=== PATIENT | male | born 1985 | race Caucasian/White ===

== ENCOUNTER 2017-09-27 15:09 | Inpatient (IN) | payer OTHER ==
[~2017-09-27] VITALS: Ht 172.7 cm; Wt 74.2 kg
[2017-09-27] MEDS ORDERED: LORAZEPAM 2 MG/1 ML VIAL IM ONE (15:15)
[2017-09-27] MEDS ORDERED: HALOPERIDOL LACTATE 5 MG/1 ML VIAL IM ONE (15:15)
[2017-09-27] MEDS ORDERED: IV NORMAL SALINE 1000 ML BAG IV ONE ×2 (15:30→16:45)
[2017-09-27] MEDS ORDERED: HALOPERIDOL LACTATE 5 MG/1 ML VIAL ONE (15:34)
[2017-09-27] MEDS ORDERED: LORAZEPAM 2 MG/1 ML VIAL ONE (15:35)
--- NOTE | 2017-09-27 15:39 | NUR ---
1515 Received ALOX4 with pt in handcuffs with police officers at bedside at this time. Attempt to give injections with pt jumping 3times pulling needle out able to give injection on 4 try. Handcuffs being removed and pt placed in velcro restraints at this time.
[2017-09-27 16:13] LABS: BASOPHILS # (AUTO) 0.1 K/uL (0.0-8.0); BASOPHILS % (AUTO) 0.4 % (0.0-2.0); HEMATOCRIT 35.4 % (36.7-47.1); HEMOGLOBIN 11.7 g/dL (12.5-16.3); LYMPHOCYTES # (AUTO) 1.2 K/uL (20.0-40.0); LYMPHOCYTES % (AUTO) 5.3 % (20.5-51.5); MEAN CORPUSCULAR HEMOGLOBIN 26.8 uug (23.8-33.4); MEAN CORPUSCULAR HGB CONC 33 g/dL (32.5-36.3); MEAN CORPUSCULAR VOLUME 81.2 fL (73.0-96.2); MONOCYTES # (AUTO) 1.8 K/uL (2.0-10.0); MONOCYTES % (AUTO) 8.4 % (0.0-11.0); NEUTROPHILS # (AUTO) 18.7 K/uL (1.8-8.9); NEUTROPHILS % (AUTO) 85.9 % (38.5-71.5); PLATELET COUNT (AUTO) 319 K/uL (152-348); RED BLOOD CELL COUNT(AUTO) 4.35 MIL/uL (4.06-5.63); WHITE BLOOD COUNT (AUTO) 21.8 K/uL (3.6-10.2)
[2017-09-27 16:16] LABS: ETHANOL < 3 MG/DL (0-0)
--- NOTE | 2017-09-27 16:22 | NUR ---
SL started at this time with medications given tolerated well no adverse reaction noted at this time. Pt is sleeping at this time, no distress noted.
[2017-09-27 16:31] LABS: THYROID STIMULATING HORMONE 1.531 mIU/mL (0.358-3.740)
[2017-09-27 16:35] LABS: ALANINE AMINOTRANSFERASE 129 U/L (16-63); ALKALINE PHOSPHATASE 79 U/L (50-136); ASPARTATE AMINOTRANSFERASE 114 U/L (15-37); BILIRUBIN,DIRECT 0.3 mg/dL (0.0-0.2); CARBON DIOXIDE 24 mmol/L (21-32); CHLORIDE 100 mmol/L (98-107); CREATININE 1.4 mg/dL (0.6-1.3); GLUCOSE 76 mg/dL (74-106); POTASSIUM 3.2 mmol/L (3.5-5.1); TOTAL PROTEIN, SERUM 8.4 g/dL (6.4-8.2); UREA NITROGEN, BLOOD 23 mg/dL (7-18)
[2017-09-27 16:39] LABS: ACETAMINOPHEN < 2.0 ug/mL (10-30)
--- NOTE | 2017-09-27 16:55 | NUR ---
Restraints removed at this time.
--- NOTE | 2017-09-27 17:22 | NUR ---
Second bag of IVF hung with lt. wrist restraint in place at this time, pt is sleeping without distress at this time.
--- NOTE | 2017-09-27 19:10 | NUR ---
REPORT TAKEN FROM DAY SHIFT RN. ASSUMING CARE AT THIS TIME.
--- NOTE | 2017-09-27 19:53 | NUR ---
REPORT GIVEN TO ROGELIO SUTHERLAND.
--- NOTE | 2017-09-27 20:22 | NUR ---
Pt. admitted to tele, under care of Dr. Carlos Aguilar Belongs List completed
--- NOTE | 2017-09-27 20:27 | NUR ---
PT ARRIVED IN TELEMETRY ALERT AND DISORIENTED. UNABLE TO COMMUNICATE D/T AMS. SINUS RHYTHM NOTED. NOTED SEVERAL SUPERFICIAL SCRATCHES AND SCABS TO UPPER RIGHT CHEST AND BILATERAL LOWER EXTREMITIES. NO ACUTE DISTRESS AT THIS TIME. 3 SIDE RAILS RAISED. AWAITING MD ORDERS. CONTINUE TO MONITOR. BP 98/56, P 87, RR 18, O2 97% RA, T 98.2.
[2017-09-27 20:48] VITALS: BP 98/56
[2017-09-28] MEDS ORDERED: ONDANSETRON 4 MG/2 ML VIAL IV PRN
[2017-09-28] MEDS ORDERED: Z GUARD REMEDY PASTE 57 GM TUBE TOP PRN
[2017-09-28] MEDS ORDERED: ACETAMINOPHEN 325 MG TABLET PO PRN
[2017-09-28] MEDS ORDERED: MAGNESIUM HYDROXIDE 30 ML LIQUID UDC PO PRN
[2017-09-28 00:17] VITALS: BP 107/53
[2017-09-28] MEDS: IV NS 1000 ML 1,000 ML IV PRN ×2 (00:38→18:13)
--- NOTE | 2017-09-28 01:00 | NUR ---
PT IN ROOM ASLEEP WITH NO INCREASED AGITATION OR CONFUSION AT THIS TIME. CURRENTLY ON 0.9% NS AT 75ML/HR. CONTINUE TO MONITOR. BED ALARM NOTED.
[2017-09-28 04:53] VITALS: BP 111/66
--- NOTE | 2017-09-28 05:00 | NUR ---
PT IN ROOM ALERT AWAKE AND ABLE TO FOLLOW SIMPLE COMMANDS. NO INCREASED AMS OR CONFUSION NOTED. PT ENCOURAGED SNACKS AND FLUIDS. PT CONTINUING ON IV HYDRATION. REMINDED PT TO ASK FOR ASSISTANCE USING CALL LIGHT. HAND LEATHER TRIMMER MAINTAINING SINUS RHYTHM. CONTINUE TO MONITOR.
[2017-09-28 06:33] LABS: BASOPHILS # (AUTO) 0.1 K/uL (0.0-8.0); BASOPHILS % (AUTO) 0.6 % (0.0-2.0); EOSINOPHILS # (AUTO) 0.1 K/uL (0.0-0.7); EOSINOPHILS % (AUTO) 1.3 % (0.0-7.0); HEMATOCRIT 35.7 % (36.7-47.1); HEMOGLOBIN 11.8 g/dL (12.5-16.3); LYMPHOCYTES # (AUTO) 2.5 K/uL (20.0-40.0); LYMPHOCYTES % (AUTO) 24.7 % (20.5-51.5); MEAN CORPUSCULAR HEMOGLOBIN 27.1 uug (23.8-33.4); MEAN CORPUSCULAR HGB CONC 33 g/dL (32.5-36.3); MEAN CORPUSCULAR VOLUME 82.1 fL (73.0-96.2); MONOCYTES # (AUTO) 0.9 K/uL (2.0-10.0); MONOCYTES % (AUTO) 8.8 % (0.0-11.0); NEUTROPHILS # (AUTO) 6.6 K/uL (1.8-8.9); NEUTROPHILS % (AUTO) 64.6 % (38.5-71.5); PLATELET COUNT (AUTO) 315 K/uL (152-348); RED BLOOD CELL COUNT(AUTO) 4.35 MIL/uL (4.06-5.63); WHITE BLOOD COUNT (AUTO) 10.2 K/uL (3.6-10.2)
[2017-09-28 06:51] LABS: CREATININE 0.9 mg/dL (0.6-1.3); PHOSPHOROUS 2.5 mg/dL (2.5-4.9); POTASSIUM 3.4 mmol/L (3.5-5.1)
[2017-09-28] MEDS: ENOXAPARIN SODIUM 40 MG/0.4 ML DISP.SYRIN SQ SCH (08:38)
--- NOTE | 2017-09-28 10:00 | NUR ---
PATIENT ALERT AND ORIENTED WHEN HE WOKE UP. NO SS OF DISTRESS NOTED. PT WAS ABLE TO STATE HIS NAME, HE DID NOT REMEMBER WHAT HAPPENED BEFORE COMING TO THE HOSPITAL, HE STATED " I WAS UPSET, BUT REMEMBER WHAT HAPPENED." TOOK INFORMATION AND PASSED IT TO DARIUS, CPA [employer] TO UPDATE HIS CHART. PATIENT IS HOMELESS, STATED THAT SHE DOES NOT HAVE FAMILY. CASED RADIO FREQUENCY DESIGN ENGINEER NOTIFIED. WILL CONTINUE MONITORING.
[2017-09-28 11:15] VITALS: BP 109/65
--- NOTE | 2017-09-28 12:00 | NUR ---
NEW IV WAS INSERTED, IV FLUIDS WERE CONTINUED. PATIENT BECAME EMOTIONAL AND ANXIOUS, STARTED CRYING. PATIENT STATED THAT HE HAVE NOT TAKEN HIS MEDICATION FOR HIS BIPOLAR DISORDER, AND HE CALMED HIS ANXIETY WITH OTHER DRUGS. ACCOUNT RESOLUTION ANALYST STUDENT WAS NOTIFIED WHO COMMUNICATED TO DR. FORREST.
[2017-09-28] MEDS ORDERED: POTASSIUM CHLORIDE 20 MEQ TAB.PRT.SR PO ONE (15:00)
[2017-09-28 15:55] VITALS: BP 107/57
--- NOTE | 2017-09-28 18:49 | NUR ---
PATIENT HAVE BEEN CALMED AND RESTING DURING THE AFTERNOON. NO S/S OF DISTRESS NOTED. MONITOR ON PLACE. COOPERATIVE WITH INTERVENTIONS AND CARE. GOOD APPETITE. SAFETY AND COMFORT PROVIDED DURING BY THE STAFF DURING THE DAY.
[2017-09-28 20:04] VITALS: BP 115/73
--- NOTE | 2017-09-28 20:30 | NUR ---
RECEIVED PATIENT ASLEEP IN BED. EASILY AROUSABLE. A/O X4. TEMPERTURE NOTED, 100.0. ALL OTHER VSS. PATIENT GIVEN TYLENOL 650MG PO PRN FOR ELEVATED TEMP. DENIES PAIN OR DISCOMFORT. NO RESP. DISTRESS NOTED. IVF INFUSING WELL TO RIGHT UPPER ARM. CALL LIGHT IN REACH. ALL NEEDS ATTENDED. WILL CONTINUE TO MONITOR
--- NOTE | 2017-09-28 20:35 | NUR ---
PATIENT IS ON TELE SR.
--- NOTE | 2017-09-28 23:00 | NUR ---
PATIENT'S HEPLOCK GOT PULLED OUT. PATIENT HAS IVF INFUSING. PATIENT REFUSED FOR H/L REINSERTION. INFORMED PATIENT OF PROTOCOL WHILE ON TELE AND IMPORTANCE OF H/L, IVF. PATIENT STILL REFUSED. DEFENSIVE LINE COACH NOTIFIED. ALL NEEDS ATTENDED, WILL CONTINUE TO MONITOR AND ASSESS.
[2017-09-28] MEDS ORDERED: risperiDONE 2 MG TABLET PO SCH (23:45)
[2017-09-29] VITALS: BP 117/76
[2017-09-29] MEDS: risperiDONE 2 MG TABLET PO ONE ×2 (00:11→00:16)
[2017-09-29 04:00] VITALS: BP 129/79
--- NOTE | 2017-09-29 05:50 | NUR ---
PATIENT ASLEEP IN BED. ON TELE SR. NO S/S OF ANY PAIN OR DISCOMFORT. NO RESP. DISTRESS NOTED. ALL NEEDS ATTENDED.
[2017-09-29 06:09] LABS: BASOPHILS # (AUTO) 0.1 K/uL (0.0-8.0); BASOPHILS % (AUTO) 0.7 % (0.0-2.0); EOSINOPHILS # (AUTO) 0.2 K/uL (0.0-0.7); EOSINOPHILS % (AUTO) 1.7 % (0.0-7.0); HEMATOCRIT 35.6 % (36.7-47.1); HEMOGLOBIN 11.8 g/dL (12.5-16.3); LYMPHOCYTES # (AUTO) 1.4 K/uL (20.0-40.0); LYMPHOCYTES % (AUTO) 15.1 % (20.5-51.5); MEAN CORPUSCULAR HEMOGLOBIN 27.4 uug (23.8-33.4); MEAN CORPUSCULAR HGB CONC 33 g/dL (32.5-36.3); MEAN CORPUSCULAR VOLUME 82.7 fL (73.0-96.2); MONOCYTES # (AUTO) 1.2 K/uL (2.0-10.0); MONOCYTES % (AUTO) 13.4 % (0.0-11.0); NEUTROPHILS # (AUTO) 6.4 K/uL (1.8-8.9); NEUTROPHILS % (AUTO) 69.1 % (38.5-71.5); PLATELET COUNT (AUTO) 366 K/uL (152-348); RED BLOOD CELL COUNT(AUTO) 4.31 MIL/uL (4.06-5.63); WHITE BLOOD COUNT (AUTO) 9.2 K/uL (3.6-10.2)
[2017-09-29 06:17] LABS: BILIRUBIN,TOTAL 0.2 mg/dL (0.2-1.0); CREATININE 0.9 mg/dL (0.6-1.3); MAGNESIUM 1.7 mg/dL (1.8-2.4); PHOSPHOROUS 2.6 mg/dL (2.5-4.9); POTASSIUM 3.9 mmol/L (3.5-5.1); TOTAL PROTEIN, SERUM 7.1 g/dL (6.4-8.2)
--- NOTE | 2017-09-29 06:46 | NUR ---
NOTIFIED DR. LOPEZ THAT PATIENT IS REFUSING IVF AND HEPLOCK TO BE RE-INSERTED. RECEIVED ORDER TO D/C FLUIDS AND OK TO KEEP HEPLOCK OUT. ALL NEEDS ATTENDED.
--- NOTE | 2017-09-29 08:00 | NUR ---
RECEIVED PATIENT IN BED AWAKE ALERT AND ORIENTED COOPERATIVE AND COMPLIANT AT THIS TIME.PATIENT HAS NO IV HEPLOCK AND REFUSES TO HAVE ONE PUT IN.TELE IS SR WITH NO ECTOPY.AMBULATES AD ZULY NO C/O DISTRESS AT THIS TIME.PATIENT STATED THAT SHE DOES NOT HAVE ANY DRUG ALLERGIES WHEN ASKED, DOCUMENTED.
[2017-09-29] MEDS: ENOXAPARIN SODIUM 40 MG/0.4 ML DISP.SYRIN SQ SCH (08:22)
[2017-09-29 11:17] VITALS: BP 117/63
--- NOTE | 2017-09-29 12:50 | NUR ---
LACING STRING CUTTER EDITOR MANAGING NEWSPAPER IN THE ROOM TO SEE PATIENT AND EXPLAINED TO HIM THAT HE WILL BE DISCHARGED TODAY AND WILL ARRANGE A FPC FOR HIM BUT PATIENT REFUSED AND STATED THAT HE WANTS [place].
--- NOTE | 2017-09-29 13:00 | NUR ---
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
[2017-09-29 16:48] VITALS: BP 117/63
== END 2017-09-29 13:00 | disposition home or self-care (01) | DRG 469 ==
LOC: ER 15:11 → TELE 20:17 → EDBD 20:17
PROVIDERS: ADMIT Nurse Practitioner Acute Care; ATTEND Nurse Practitioner Acute Care
DX: N17.0 Acute kidney failure with tubular necrosis (principal); E86.0 Dehydration; G93.41 Metabolic encephalopathy; E87.6 Hypokalemia; R41.82 Altered mental status, unspecified; D72.829 Elevated white blood cell count, unspecified; R74.0 Nonspecific elevation of levels of transaminase and lactic acid dehydrogenase [LDH]; R40.2410 Glasgow coma scale score 13-15, unspecified time; Z59.0 Homelessness; F31.9 Bipolar disorder, unspecified; Z91.14 Patient's other noncompliance with medication regimen; F41.9 Anxiety disorder, unspecified; F15.90 Other stimulant use, unspecified, uncomplicated
CPT/HCPCS: 36415; 70030-TC; 71045; 83690; 83735; 84100; 84443; 85025; 85730; 93005; 93307; A4663; G0480; G0480-TC; J1630; J1650; J2060; J7030

== ENCOUNTER 2017-10-07 23:24 | Emergency (ER) | payer OTHER ==
[~2017-10-07] VITALS: Ht 177.8 cm; Wt 68.0 kg
--- NOTE | 2017-10-08 02:36 | NUR ---
pt aaox4, ambulatory, innio distress, c/o of 2 days hx of cough producing thick yellow sputum,abd pain n/v/d, [facility], staes that symptoms not subsiding, denies cp. lung field clear on all lobes, breathing even unlabored, denies any urinary symptoms, pt placed in bed, bed in low position, changed to a hospital gown, HOB up, SR up X2 for safety, CB within reach, awaiting for MD couch
--- NOTE | 2017-10-08 02:48 | NUR ---
MD ISIDRO AT BEDSIDE CONDUCTING MED EVAL.
[2017-10-08] MEDS ORDERED: IV NORMAL SALINE 1000 ML BAG IV ONE (03:00)
[2017-10-08] MEDS ORDERED: ONDANSETRON 4 MG/2 ML VIAL IV ONE ×2 (03:00→04:15)
[2017-10-08] MEDS ORDERED: ONDANSETRON 4 MG/2 ML VIAL ONE ×2 (03:23→04:50)
[2017-10-08 03:29] LABS: BASOPHILS # (AUTO) 0.1 K/uL (0.0-8.0); BASOPHILS % (AUTO) 1.1 % (0.0-2.0); EOSINOPHILS # (AUTO) 0.1 K/uL (0.0-0.7); EOSINOPHILS % (AUTO) 1.1 % (0.0-7.0); HEMATOCRIT 34.4 % (36.7-47.1); HEMOGLOBIN 11.4 g/dL (12.5-16.3); LYMPHOCYTES # (AUTO) 2.7 K/uL (20.0-40.0); LYMPHOCYTES % (AUTO) 23.3 % (20.5-51.5); MEAN CORPUSCULAR HEMOGLOBIN 26.7 uug (23.8-33.4); MEAN CORPUSCULAR HGB CONC 33 g/dL (32.5-36.3); MEAN CORPUSCULAR VOLUME 80.7 fL (73.0-96.2); MONOCYTES # (AUTO) 1.5 K/uL (2.0-10.0); MONOCYTES % (AUTO) 12.9 % (0.0-11.0); NEUTROPHILS # (AUTO) 7.1 K/uL (1.8-8.9); NEUTROPHILS % (AUTO) 61.6 % (38.5-71.5); PLATELET COUNT (AUTO) 601 K/uL (152-348); RED BLOOD CELL COUNT(AUTO) 4.26 MIL/uL (4.06-5.63); WHITE BLOOD COUNT (AUTO) 11.5 K/uL (3.6-10.2)
--- NOTE | 2017-10-08 03:35 | NUR ---
PT ENDORSED TO MELVI SUTHERLAND
--- NOTE | 2017-10-08 03:35 | NUR ---
report received from Ariel SUTHERLAND. pt awake and alert
[2017-10-08 03:37] LABS: BILIRUBIN,DIRECT 0.1 mg/dL (0.0-0.2); BILIRUBIN,TOTAL 0.3 mg/dL (0.2-1.0); CREATININE 0.9 mg/dL (0.6-1.3); POTASSIUM 3.5 mmol/L (3.5-5.1); TOTAL PROTEIN, SERUM 7.9 g/dL (6.4-8.2)
--- NOTE | 2017-10-08 03:40 | NUR ---
pt c/o discomfort to IV site. ER MD made aware and instructed for site to be DCed. L ac 18GA removed.
--- NOTE | 2017-10-08 06:44 | NUR ---
Patient discharged to home in stable conditon. Written and verbal after care instructions given. Patient verbalizes understanding of instructions.
[2017-10-08 06:47] VITALS: BP 135/72
== END 2017-10-08 06:58 | disposition home or self-care (01) ==
LOC: ER 23:26
DX: A08.4 Viral intestinal infection, unspecified (principal); Z59.0 Homelessness
CPT/HCPCS: 36415; 85025; A4663; J2405; J7030

== ENCOUNTER 2019-01-01 17:29 | Emergency (ER) | payer SELFPAY ==
[~2019-01-01] VITALS: Ht 177.8 cm; Wt 77.1 kg
[2019-01-01] MEDS ORDERED: LORAZEPAM 2 MG/1 ML VIAL ONE (17:40)
[2019-01-01] MEDS ORDERED: HALOPERIDOL LACTATE 5 MG/1 ML VIAL ONE (17:40)
[2019-01-01] MEDS ORDERED: diphenhydrAMINE 50 MG/1 ML VIAL ONE (17:40)
[2019-01-01] MEDS ORDERED: LORAZEPAM 2 MG/1 ML VIAL IM ONE (17:45)
[2019-01-01] MEDS ORDERED: diphenhydrAMINE 50 MG/1 ML VIAL IM ONE (17:45)
[2019-01-01] MEDS ORDERED: HALOPERIDOL LACTATE 5 MG/1 ML VIAL IM ONE (17:45)
[2019-01-01 17:52] LABS: BASOPHILS % (AUTO) 0.4 % (0.0-2.0); EOSINOPHILS # (AUTO) 0.1 K/uL (0.0-0.7); EOSINOPHILS % (AUTO) 0.8 % (0.0-7.0); HEMOGLOBIN 12.3 g/dL (12.5-16.3); LYMPHOCYTES # (AUTO) 2.8 K/uL (20.0-40.0); LYMPHOCYTES % (AUTO) 29.5 % (20.5-51.5); MEAN CORPUSCULAR HEMOGLOBIN 28.3 uug (23.8-33.4); MEAN CORPUSCULAR HGB CONC 33 g/dL (32.5-36.3); MEAN CORPUSCULAR VOLUME 85.2 fL (73.0-96.2); MONOCYTES % (AUTO) 10.6 % (0.0-11.0); NEUTROPHILS # (AUTO) 5.7 K/uL (1.8-8.9); NEUTROPHILS % (AUTO) 58.7 % (38.5-71.5); PLATELET COUNT (AUTO) 426 K/uL (152-348); RED BLOOD CELL COUNT(AUTO) 4.34 MIL/uL (4.06-5.63); WHITE BLOOD COUNT (AUTO) 9.7 K/uL (3.6-10.2)
[2019-01-01 18:02] LABS: CARBON DIOXIDE 24 mmol/L (21-32); CHLORIDE 103 mmol/L (98-107); CREATININE 1.1 mg/dL (0.6-1.3); GLUCOSE 101 mg/dL (74-106); POTASSIUM 3.7 mmol/L (3.5-5.1); UREA NITROGEN, BLOOD 13 mg/dL (7-18)
[2019-01-01 18:06] LABS: ETHANOL < 3 MG/DL (0-0)
[2019-01-01 18:08] LABS: ALANINE AMINOTRANSFERASE 43 U/L (16-63); ALKALINE PHOSPHATASE 86 U/L (50-136); ASPARTATE AMINOTRANSFERASE 31 U/L (15-37); BILIRUBIN,DIRECT 0.2 mg/dL (0.0-0.2); BILIRUBIN,TOTAL 0.6 mg/dL (0.2-1.0); TOTAL PROTEIN, SERUM 7.9 g/dL (6.4-8.2)
[2019-01-01 18:09] LABS: ACETAMINOPHEN < 2.0 ug/mL (10-30)
[2019-01-01 18:34] LABS: *BLOOD, URINE NEGATIVE (NEGATIVE); *CLARITY,URINE CLEAR (CLEAR); *COLOR,URINE DARK YELLOW (YELLOW); *KETONES,URINE 1+ (NEGATIVE); LEUKOCYTE ESTERASE ,URINE NEGATIVE (NEGATIVE); NITRITE, URINE NEGATIVE (NEGATIVE); UGLUCOSE NEGATIVE (NEGATIVE)
[2019-01-01 18:43] LABS: *BILIRUBIN,URIN 2+ (NEGATIVE)
[2019-01-01 18:46] LABS: BACTERIA,URINE FEW /HPF (NONE SEEN); RBC,URINE 0-3 /HPF (0-3); SQUAMOUS EPITHELIAL CELL,UR FEW /HPF (NONE SEEN)
[2019-01-01 18:47] LABS: *AMPHETAMINE, URINE POSITIVE (NEGATIVE); *BARBITURATE, URINE NEGATIVE (NEGATIVE); *CANNABINOID, URINE POSITIVE (NEGATIVE); *COCCAINE, URINE NEGATIVE (NEGATIVE); *OPIATE, URINE POSITIVE (NEGATIVE); *PHENCYCLIDINE SCREEN,URINE NEGATIVE (NEGATIVE)
--- NOTE | 2019-01-01 18:50 | NUR ---
Pt is awake, alert, oriented x 3 and cooperative at this time. Pt states he is homeless, he smokes meth but smoked more than he usually does today. Pt denies any S.I. All restraints removed, pt states he is hungry and thirsty, pt was provided a sandwich and water. No s/s of acute distress noted at this time.
--- NOTE | 2019-01-01 19:08 | NUR ---
Hands off report to RN Ludwin accordingly
--- NOTE | 2019-01-01 19:22 | NUR ---
Received report from Lilia SUTHERLAND, assumed care of pt., pt. resting in bed w/ eyes closed, RR even and unlabored, NAD
--- NOTE | 2019-01-01 20:04 | NUR ---
Pt. resting in bed w/ eyes closed, NAD
--- NOTE | 2019-01-01 22:31 | NUR ---
Pt. resting in bed w/ eyes closed, NAD
--- NOTE | 2019-01-02 00:20 | NUR ---
Pt. eating food in bed, pudding given, bed in low position, NAD
--- NOTE | 2019-01-02 01:30 | NUR ---
Pt. resting in bed w/ eyes closed, NAD
--- NOTE | 2019-01-02 02:36 | NUR ---
Pt. resting in bed, NAD
--- NOTE | 2019-01-02 03:35 | NUR ---
Pt. resting in bed w/ eyes closed, NAD
--- NOTE | 2019-01-02 03:35 | NUR ---
Pt. resting in bed w/ eyes closed, NAD
--- NOTE | 2019-01-02 05:24 | NUR ---
Pt. resting in bed w/ eyes closed, NAD
--- NOTE | 2019-01-02 06:40 | NUR ---
Pt. resting in bed, NAD
--- NOTE | 2019-01-02 07:21 | NUR ---
Gave report to marium SUTHERLAND, NAD
--- NOTE | 2019-01-02 08:13 | NUR ---
Patient given written and verbal discharge instructions. Patient verbalizes understanding of instructions. Patient is ambulatory with steady gait. Refuses offer of fci placement. Patient given list of available shelters in surrounding area.
[2019-01-02 08:23] VITALS: BP 125/71
== END 2019-01-02 08:28 | disposition home or self-care (01) ==
LOC: EDBD → ER 17:32 → MERGE 17:32 → ER 01-02 08:28
DX: F29 Unspecified psychosis not due to a substance or known physiological condition (principal)
CPT/HCPCS: 36415; 80048; 80076; 80307; 81001; 85025; 96372 ×3; 99284; G0480 ×2; G0481; J1200; J1630; J2060; A4663; C1758